=== PATIENT | male | born 1965 | race Caucasian/White ===

== ENCOUNTER 2017-01-03 21:08 | Emergency (ER) | payer SELFPAY ==
[~2017-01-03] VITALS: Ht 175.3 cm; Wt 142.4 kg
[2017-01-04 01:37] VITALS: BP 157/88
== END 2017-01-04 02:15 | disposition home or self-care (01) ==
LOC: ER 21:08
DX: B35.6 Tinea cruris (principal); Z88.0 Allergy status to penicillin